=== PATIENT | male | born 1990 | race Caucasian/White ===

== ENCOUNTER 2017-03-28 18:01 | Emergency (ER) | payer OTHER ==
[~2017-03-28] VITALS: Ht 180.3 cm; Wt 90.7 kg
[2017-03-28 18:02] VITALS: BP 129/93
[2017-03-28] MEDS ORDERED: NAPROSYN500 MG PO (19:08)
== END 2017-03-28 19:28 | disposition home or self-care (01) ==
LOC: ER 18:01
DX: M79.642 Pain in left hand (principal); F17.210 Nicotine dependence, cigarettes, uncomplicated; F10.99 Alcohol use, unspecified with unspecified alcohol-induced disorder; Z98.890 Other specified postprocedural states